=== PATIENT | female | born 1990 | race Caucasian/White ===

== ENCOUNTER 2022-12-24 08:42 | Day surgery (SDC) | payer BC ==
[2022-12-24] MEDS ORDERED: Acetaminophen 500 MG TAB ONE (08:56)
[2022-12-24] MEDS ORDERED: Acetaminophen 500 MG TAB PO SCH (09:15)
[2022-12-24] MEDS ORDERED: Iron Sucrose Complex 500 MG in Sodium Chloride 0.9% 250 ML 250 ML IVPB SCH (09:15)
== END 2022-12-24 14:45 | disposition home or self-care (01) ==
LOC: CSHSDC/OP 08:42
PROVIDERS: ATTEND Advanced Practice Midwife
DX: O99.019 Anemia complicating pregnancy, unspecified trimester (principal); D64.9 Anemia, unspecified; Z3A.00 Weeks of gestation of pregnancy not specified
CPT/HCPCS: J1756; J7050

== ENCOUNTER 2023-01-12 07:54 | Day surgery (SDC) | payer BC ==
[2023-01-12] MEDS ORDERED: hydrALAZINE 20 MG/ML VIAL SLOW IVP PRN (08:06)
[2023-01-12] MEDS ORDERED: Promethazine HCl 25 MG/ML VIAL IM PRN ×2 (08:06→14:56)
[2023-01-12] MEDS ORDERED: Ondansetron PF 4 MG/2 ML Vial IVP PRN ×2 (08:06→14:56)
[2023-01-12] MEDS ORDERED: Mineral Oil PER (1 ML CHG) TOP PRN (08:09)
[2023-01-12 08:26] VITALS: BMI 50.8
[2023-01-12 09:15] LABS: Hematocrit 30.7 % (34.9-44.5); Hemoglobin 9.6 g/dL (12.0-15.5); Mean Corpuscular HGB CONC 31.3 g/dL (32.0-36.0); Mean Corpuscular Hemoglobin 24.7 pg (27.0-33.0); Mean Corpuscular Volume 79.1 fl (81.6-98.3); Platelet Count 309 10x3/uL (150-450); RBC Distribution Width 17.1 % (11.5-14.5); Red Blood Cell (RBC) Count 3.88 10x6/uL (3.90-5.03); White Blood Cell (WBC) Count 7.8 10x3/uL (3.5-10.5)
[2023-01-12] MEDS ORDERED: fentaNYL/Ropivacaine Epidural 100 ML ONE (09:21)
[2023-01-12] MEDS ORDERED: Terbutaline Sulfate 1 MG/ML VIAL SC SCH (09:45)
[2023-01-12 09:47] LABS: HBSAg Index 0.12 S/CO (0-0.99); Hep B Surf Ag - L&D Non-Reactive S/CO (NonReactive)
[2023-01-12 09:48] LABS: Syphilis Antibody Nonreactive (Nonreactive); Syphilis Antibody Index 0.02 S/CO (<1.00 Non-Reactive)
[2023-01-12] MEDS ORDERED: Bicitra 30 ML UDCUP ONE (09:53)
[2023-01-12] MEDS ORDERED: Lactated Ringer's 500 ML IV PRN (14:56)
[2023-01-12] MEDS ORDERED: diphenhydrAMINE 50 MG/ML VIAL IVP PRN (14:56)
[2023-01-12] MEDS ORDERED: Acetaminophen 325 MG TAB PO PRN (14:56)
[2023-01-12] MEDS ORDERED: Naloxone HCl 0.4 mg/ml Vial IVP PRN ×2 (14:56)
[2023-01-12] MEDS ORDERED: ePHEDrine Sulfate 50 MG/10 ML VIAL SLOW IVP PRN (14:56)
[2023-01-12] MEDS ORDERED: Moisturizing Cream (Eucerin) 113 GM JAR TOP PRN (14:56)
[2023-01-12] MEDS ORDERED: Communication Order-Pharmacy FS SCH (15:00)
[2023-01-12] MEDS ORDERED: fentaNYL 2 mcg/Ropivacaine 0.2% Epidural 100 ML CADD EPIDURAL SCH (15:00)
[2023-01-12] MEDS ORDERED: Terbutaline Sulfate 1 MG/ML VIAL ONE (19:56)
[2023-01-12] MEDS ORDERED: Bupivacaine 0.25% HCL 30 ML VIAL ONE (19:56)
== END 2023-01-12 18:25 | disposition home or self-care (01) ==
LOC: CSHLD/OP 07:54
PROVIDERS: ATTEND Obstetrics & Gynecology
DX: O32.1XX0 Maternal care for breech presentation, not applicable or unspecified (principal); O99.213 Obesity complicating pregnancy, third trimester; E66.9 Obesity, unspecified; O99.013 Anemia complicating pregnancy, third trimester; D64.9 Anemia, unspecified; Z79.899 Other long term (current) drug therapy; Z3A.37 37 weeks gestation of pregnancy
CPT/HCPCS: 36415; 51702; 76815; 85027; 86780; 86850; 86900; 86901; 87340; J3105; S0020